=== PATIENT | female | born 1955 | race Caucasian/White ===

== ENCOUNTER 2021-04-24 20:57 | Emergency (ER) | payer OTHER, MEDICAID ==
[~2021-04-24] VITALS: Ht 170.2 cm; Wt 173.6 kg
[~2021-04-24 20:57] MED LIST: ACET-2061 PO; AMLO10TA4 PO; ATOR10TA PO; CHOL-5 PO; CYCL10TA2 PO; GLIM1TAB7 PO; HYDR-2145 PO; Hydrocodone/Acetaminophen PO; LEVO100T5 PO; LEVO50TA PO; LEVO88TA4 PO; LISI-130 PO; LISI20TA PO; METF500T PO; NAPR-683 PO; OXYC1TAB15 PO
--- NOTE | 2021-04-24 23:03 | PHYS DOC ---
Past Medical History Past Medical History: CHF, COPD, Diabetes-Type II, Hypothyroid, Other Additional Past Medical Histor: sleep apnea w/ cpap, degen disk dx, FALLS, MORBIDLY OBESE (ARLET SY PARALLEL COMPUTING SOFTWARE ENGINEER) Past Surgical History: Appendectomy, Hysterectomy, Tonsillectomy Additional Past Surgical Histo: umbilical hernia repair, bilat rotator cuff sx (ARLET SY [employer] COMPUTING SOFTWARE ENGINEER) Smoking Status: Never Smoker Alcohol Use: Rarely Drug Use: None (ARLET SY [employer] COMPUTING SOFTWARE ENGINEER) General Adult EDM: Chief Complaint: LOWER EXT PAIN HPI: HPI: Patient is a 65 year old female with a history of diabetes type 2, hypertension, hypothyroidism, who presents to the ED today complaining of 7 out of 10 sharp type burning pain to the left lower extremity, symptoms began 4 days ago. Patient is also complaining of redness on the left fields. Patient denies any fever. States symptoms are worse on weightbearing. She is very concerned about her DVT. Denies any personal family history of DVTs. Denies any recent hospitalization or long air or car rides. Denies any chest pain or shortness of breath. Denies any trauma. (ARLET SY [employer]AL[employer] COMPUTING SOFTWARE ENGINEER) Review of Systems: Review of Systems: Constitutional: Denies fever or chills. [] Eyes: Denies change in visual acuity. [] HENT: Denies nasal congestion or sore throat. [] Respiratory: Denies cough or shortness of breath. [] Cardiovascular: Denies chest pain or edema. [] GI: Denies abdominal pain, nausea, vomiting, bloody stools or diarrhea. [] : Denies dysuria. [] Musculoskeletal: Denies back pain or joint pain. [] Integument: Reports left lower extremity swelling, redness, pain. Neurologic: Denies headache, focal weakness or sensory changes. [] Psychiatric: Denies depression or anxiety. [] (ARLET SY [employer] COMPUTING SOFTWARE ENGINEER) Heart Score: C/O Chest Pain: N/A Risk Factors: Risk Factors: DM, Current or recent (<one month) smoker, HTN, HLP, family history of CAD, obesity. Risk Scores: Score 0 - 3: 2.5% MACE over next 6 weeks - Discharge Home Score 4 - 6: 20.3% MACE over next 6 weeks - Admit for Clinical Observation Score 7 - 10: 72.7% MACE over next 6 weeks - Early Invasive Strategies (ARLET SY Cat [employer]PUTING SOFTWARE ENGINEER) Allergies: Allergies: Allergies Coded Allergies Type Severity Reaction Last Updated Verified No Known Drug Allergies 11/28/14 No (ARLET SY Cat FONG) Physical Exam: PE: Constitutional: Well developed, well nourished, no acute distress, non-toxic appearance. [] HENT: Normocephalic, atraumatic, bilateral external ears normal, oropharynx moist, no oral exudates, nose normal. [] Eyes: PERRLA, EOMI, conjunctiva normal, no discharge. [] Neck: Normal range of motion, no tenderness, supple, no stridor. [] Cardiovascular:Heart rate regular rhythm, no murmur [] Lungs & Thorax: Bilateral breath sounds clear to auscultation [] Abdomen: Bowel sounds normal, soft, no tenderness, no masses, no pulsatile masses. [] Skin: Warm, dry, no erythema, no rash. [] Back: No tenderness, no CVA tenderness. [] Extremities: Obese patient. Bilateral lower extremities appears to have chronic lymphedema. There is redness on the left fields suspicious of cellulitis. Some warmth noted over the left fields. +2 bilateral pedal pulses. Negative Homans' sign to the left left lower extremity Neurologic: Alert and oriented X 3, normal motor function, normal sensory function, no focal deficits noted. [] Psychologic: Affect normal, judgement normal, mood normal. [] (ARLET SY Cat [employer] COMPUTING SOFTWARE ENGINEER) Current Patient Data: Vital Signs: Vital Signs Date Time Temp Pulse Resp B/P (MAP) Pulse Ox O2 Delivery O2 Flow Rate FiO2 04/24/21 21:03 98.1 87 18 131/60 (83) 90 Room Air 98.1 (ARLET SY Cat [employer] COMPUTING SOFTWARE ENGINEER) EKG: EKG: [] (ARLET SY [employer] COMPUTING SOFTWARE ENGINEER) Radiology/Procedures: Radiology/Procedures: [] (ARLET SY [employer]ALLE[employer] COMPUTING SOFTWARE ENGINEER) Radiology/Procedures: PROCEDURE: VENOUS LOWER EXTREMITY LEFT STUDY: US DPLX VENOUS EXTREMITY LOWER LT INDICATION: Lower extremity swelling and redness. DVT. TECHNIQUE: Color-flow and pulsed wave duplex ultrasound with compression of venous structures of the left lower extremity. COMPARISON: None. FINDINGS: Technically difficult study on account of patient body habitus. Duplex ultrasound with compression of the deep venous structures of the left lower extremity from the common femoral vein through the popliteal vein is negative for DVT. The posterior tibial and peroneal veins are partially visualized and patent where seen. Normal venous waveforms and augmentation are noted throughout. IMPRESSION: No deep venous thrombosis seen throughout the left lower extremity noting hindered assessment of the calf veins on account of patient body habitus. Electronically signed by: RENETTA BIRMINGHAM MD (04/24/2021 11:31 PM) [facility] (YARIEL KNAPP DO) Course & Med Decision Making: Course & Med Decision Making Pertinent Labs and Imaging studies reviewed. (See chart for details) This is a 65-year-old female patient presenting to the ED today with left lower extremity pain, swelling, redness over the fields. Patient is concerned about DVT. Venous Doppler of the left lower extremity is negative. Discharged on clindamycin. Tetanus is up-to-date. Follow-up with PCP (ARLET SY APRN) Dragon Disclaimer: Dragon Disclaimer: This electronic medical record was generated, in whole or in part, using a voice recognition dictation system. (ARLET SY APRN) Departure Departure Impression: Primary Impression: Cellulitis of left lower extremity Disposition: HOME / SELF CARE / HOMELESS Condition: STABLE Referrals: YARIEL WADE MD (PCP) follow up in one week Patient Instructions: Cellulitis, [id number] Additional Instructions: You were evaluated in the emergency room, you do not have any blood clots in the left lower extremity. Your redness of the left leg is suspicious of cellulitis. We put you on antibiotics ensure you complete them. Try to elevate bilateral lower extremities. Follow-up with your doctor next week Scripts Hydrocodone Bit/Acetaminophen (HYDROCODONE-APAP 5-325 ) 1 Tab Tablet 1 TAB PO PRN Q6HRS PRN for PAIN, #14 TAB 0 Refills Prov: ARLET SY APRN 04/24/21 Clindamycin Hcl (CLINDAMYCIN HCL) 150 Mg Capsule 3 CAP PO TID, #90 CAP Prov: ARLET SY APRN 04/24/21 Attending Signature Attending Signature I have reviewed the PA/TECHNICIAN PREVENTATIVE MEDICINE's note and plan of care. I was available for consultation as needed during the patient's visit in the emergency department. I agree with the clinical impression, plan, and disposition. (YARIEL KNAPP DO) ARLET SY APRN Apr 24, 2021 23:03 YARIEL KNAPP DO Apr 24, 2021 23:36
[2021-04-24] MEDS ORDERED: CLIN150C15 PO (23:08)
[2021-04-24] MEDS ORDERED: HYDR-2761 PO (23:08)
[2021-04-24] MEDS ORDERED: CLINDAMYCIN HCL 150 MG CAPSULE. PO ONE (23:30)
[2021-04-24] MEDS ORDERED: HYDROcodone/APAP 5/325MG 1 TAB TABLET PO ONE (23:30)
[2021-04-24] MEDS ORDERED: DIPH,PERTUSS(ACELL),TET VAC/PF 0.5 ML SYRINGE. VAX IM ONE (23:30)
--- NOTE | 2021-04-24 23:33 | RAD ---
STUDY: US DPLX VENOUS EXTREMITY LOWER LT INDICATION: Lower extremity swelling and redness. DVT. TECHNIQUE: Color-flow and pulsed wave duplex ultrasound with compression of venous structures of the left lower extremity. COMPARISON: None. FINDINGS: Technically difficult study on account of patient body habitus. Duplex ultrasound with compression of the deep venous structures of the left lower extremity from the common femoral vein through the popliteal vein is negative for DVT. The posterior tibial and peroneal veins are partially visualized and patent where seen. Normal venous waveforms and augmentation are noted throughout. IMPRESSION: No deep venous thrombosis seen throughout the left lower extremity noting hindered assessment of the calf veins on account of patient body habitus. Electronically signed by: RENETTA BIRMINGHAM MD (04/24/2021 11:31 PM) [facility]
[2021-04-24 23:37] VITALS: BP 135/77
== END 2021-04-25 02:50 | disposition home or self-care (01) ==
LOC: ER 20:57
DX: L03.116 Cellulitis of left lower limb (principal); E11.9 Type 2 diabetes mellitus without complications; E03.9 Hypothyroidism, unspecified; I11.0 Hypertensive heart disease with heart failure; I50.9 Heart failure, unspecified; J44.9 Chronic obstructive pulmonary disease, unspecified; Z90.49 Acquired absence of other specified parts of digestive tract; Z90.710 Acquired absence of both cervix and uterus
CPT/HCPCS: 90471; 90715; 93971; 99284; 99285

== ENCOUNTER 2021-09-17 15:32 | Emergency (ER) | payer OTHER, MEDICAID ==
[~2021-09-17] VITALS: Ht 170.2 cm; Wt 175.0 kg
[~2021-09-17 15:32] MED LIST changes: +CLIN150C16 PO; +CYCL10TA19 PO; -CYCL10TA2 PO; +HYDR-2761 PO
[2021-09-17 15:45] VITALS: BP 159/72
--- NOTE | 2021-09-17 16:06 | PHYS DOC ---
Past Medical History Past Medical History: CHF, COPD, Diabetes-Type II, Hypothyroid, Other Additional Past Medical Histor: sleep apnea w/ cpap, degen disk dx, FALLS, MORBIDLY OBESE Past Surgical History: No Surgical History Additional Past Surgical Histo: umbilical hernia repair, bilat rotator cuff sx Smoking Status: Never Smoker Alcohol Use: None Drug Use: None General Adult EDM: Chief Complaint: KNEE INJURY HPI: HPI: Patient is a 65 year old female who was brought here by EMS from longterm due to bilateral knee injury. Patient says she got out of the shower, the floor was wet, her feet slipped, she fell forward on her knees. Patient denies any head or neck injury, denies any upper extremity injury, denies any pelvic pain, denies any back pain. Review of Systems: Review of Systems: Constitutional: Denies fever or chills. [] Eyes: Denies change in visual acuity. [] HENT: Denies nasal congestion or sore throat. [] Respiratory: Denies cough or shortness of breath. [] Cardiovascular: Denies chest pain or edema. [] GI: Denies abdominal pain, nausea, vomiting, bloody stools or diarrhea. [] : Denies dysuria. [] Musculoskeletal: Denies back pain, positive for bilateral knee pain. Integument: Denies rash. [] Neurologic: Denies headache, focal weakness or sensory changes. [] Endocrine: Denies polyuria or polydipsia. [] Lymphatic: Denies swollen glands. [] Psychiatric: Denies depression or anxiety. [] Heart Score: C/O Chest Pain: N/A Risk Factors: Risk Factors: DM, Current or recent (<one month) smoker, HTN, HLP, family history of CAD, obesity. Risk Scores: Score 0 - 3: 2.5% MACE over next 6 weeks - Discharge Home Score 4 - 6: 20.3% MACE over next 6 weeks - Admit for Clinical Observation Score 7 - 10: 72.7% MACE over next 6 weeks - Early Invasive Strategies Allergies: Allergies: Allergies Coded Allergies Type Severity Reaction Last Updated Verified No Known Drug Allergies 11/28/14 No Physical Exam: PE: Constitutional: Well developed, well nourished, no acute distress, non-toxic appearance. [] HENT: Normocephalic, atraumatic, bilateral external ears normal, oropharynx moist, no oral exudates, nose normal. [] Eyes: PERRLA, EOMI, conjunctiva normal, no discharge. [] Neck: Normal range of motion, no tenderness, supple, no stridor. [] Cardiovascular:Heart rate regular rhythm, no murmur [] Lungs & Thorax: Bilateral breath sounds clear to auscultation [] Abdomen: Bowel sounds normal, soft, no tenderness, no masses, no pulsatile masses. [] Skin: Warm, dry, no erythema, no rash. [] Back: No tenderness, no CVA tenderness. [] Extremities: Bilateral anterior knee contusion, tender to palpation, no deformity noted. Neurologic: Alert and oriented X 3, normal motor function, normal sensory function, no focal deficits noted. [] Psychologic: Affect normal, judgement normal, mood normal. [] Current Patient Data: Vital Signs: Vital Signs Date Time Temp Pulse Resp B/P (MAP) Pulse Ox O2 Delivery O2 Flow Rate FiO2 09/17/21 15:45 98.5 82 20 159/72 (101) 95 Room Air 98.5 EKG: EKG: [] Radiology/Procedures: Radiology/Procedures: [][facility] [address] [place] [address] IMAGING REPORT Signed PATIENT: ZACK SALINAS ACCOUNT: [id number] : 1955 LOCATION: ER AGE: 65 SEX: F EXAM STATUS: PRE ER ORD. PHYSICIAN: EDA SHIELDS DO REASON: fell, bilateral knee injury PROCEDURE: KNEE BILAT 4V EXAMINATION: Bilateral knee radiographs. VIEWS: 4 views of bilateral knees COMPARISON: None INDICATION:65 years, Female, fell, bilateral knee injury. FINDINGS: Right knee: No acute fracture. There is mild joint space narrowing of the medial and patellofemoral compartments. There are marginal/small tricompartmental osteophytes. There is a 1.2 cm sclerotic focus in the medial femoral metaphysis likely representing sequela of old trauma or bone island. No sizable joint effusion. Left knee: No acute fracture. There is mild to moderate joint space narrowing of the medial and patellofemoral compartments. There are marginal/small tricom partmental osteophytes. Bone mineralization is normal. No significant joint effusion. IMPRESSION: 1. No evidence of acute osseous process of bilateral knees. Bilateral [id number] tricompartmental osteoarthritis. 2. Indeterminate sclerotic focus in the right medial tibial metaphysis likely represents an area of remote trauma or bone island. May consider MRI if high clinical index of suspicion for an aggressive osseous lesion. Electronically signed by: Norma Macdonald DO (09/17/2021 4:31 PM) [facility] DICTATED and SIGNED BY: NORMA MACDONALD DO DATE: 09/17/21 [id number] 0 Course & Med Decision Making: Course & Med Decision Making Pertinent Labs and Imaging studies reviewed. (See chart for details) Patient is a 65-year-old female who present to ER due to bilateral knee injury, x-ray did not show any acute problem. Her knees were Yovani wrapped. Patient will be discharged back to the longterm. Dragon Disclaimer: Dragon Disclaimer: This electronic medical record was generated, in whole or in part, using a voice recognition dictation system. Departure Departure Impression: Primary Impression: Contusion of knee, left Additional Impression: Contusion of knee, right Disposition: 01 HOME / SELF CARE / HOMELESS Condition: STABLE Referrals: YARIEL WADE MD (PCP) Follow-up with your doctor as needed Patient Instructions: Contusion Additional Instructions: Thank you for visiting our Emergency Department. We appreciate you trusting us with your care. If any additional problems come up don't hesitate to return to visit us. Please follow up with your primary care provider so they can plan additional care if needed and know about the problem that you had. If symptoms worsen come back to the Emergency Department. Any concerning symptoms that start such as chest pain, shortness of air, weakness or numbness on one side of the body, running high fevers or any other concerning symptoms return to the ER. EDA SHIELDS DO Sep 17, 2021 16:05
--- NOTE | 2021-09-17 16:34 | RAD ---
EXAMINATION: Bilateral knee radiographs. VIEWS: 4 views of bilateral knees COMPARISON: None INDICATION:65 years, Female, fell, bilateral knee injury. FINDINGS: Right knee: No acute fracture. There is mild joint space narrowing of the medial and patellofemoral c ompartments. There are marginal/small tricompartmental osteophytes. There is a 1.2 cm sclerotic focus in the medial femoral metaphysis likely representing sequela of old trauma or bone island. No sizabl e joint effusion. Left knee: No acute fracture. There is mild to moderate joint space narrowing of the medial and khan lofemoral compartments. There are marginal/small tricompartmental osteophytes. Bone mineralization is normal. No significant joint effusion. IMPRESSION: 1. No evidence of acute osseous process of bilateral knees. Bilateral [id number] tricompartment al osteoarthritis. 2. Indeterminate sclerotic focus in the right medial tibial metaphysis likely represents an area of r emote trauma or bone island. May consider MRI if high clinical index of suspicion for an aggressive o sseous lesion. Electronically signed by: Marquez Macdonald DO (09/17/2021 4:31 PM) [facility]
== END 2021-09-17 20:00 | disposition home or self-care (01) ==
LOC: ER 15:32
DX: S80.02XA Contusion of left knee, initial encounter (principal); S80.01XA Contusion of right knee, initial encounter; J44.9 Chronic obstructive pulmonary disease, unspecified; E03.9 Hypothyroidism, unspecified; E66.01 Morbid (severe) obesity due to excess calories; Z68.44 Body mass index [BMI] 60.0-69.9, adult; Z86.79 Personal history of other diseases of the circulatory system; W01.0XXA Fall on same level from slipping, tripping and stumbling without subsequent striking against object, initial encounter; Y93.E1 Activity, personal bathing and showering; Y92.89 Other specified places as the place of occurrence of the external cause; Y99.8 Other external cause status
CPT/HCPCS: 99284; A6450; 73564-50